=== PATIENT | female | born 1995 | race Two or more races ===

== ENCOUNTER 2016-06-13 19:44 | Emergency (ER) | payer MEDICAID ==
[~2016-06-13] VITALS: Ht 165.1 cm; Wt 59.0 kg
[2016-06-13 20:00] VITALS: BP 118/50
[2016-06-13 20:46] LABS: Urine Bilirubin Negative (Negative); Urine Color Yellow (Yellow); Urine Glucose Normal (Normal); Urine Mucus FEW (None Seen); Urine Nitrite Negative (Negative); Urine RBC 4 /hpf (0 - 4); Urine Squamous Epithelial Cell FEW /hpf (<5); Urine Urobilinogen Normal (Negative); Urine pH 6.5 (5.0-8.0)
[2016-06-13 20:51] LABS: Urine Blood 2+ /uL (Negative); Urine Ketone 2+ (Negative)
[2016-06-13 20:57] LABS: Basophils # (auto) 0 uL; Basophils % (auto) 0.3 % (0.0-2.0); Eosinophils # (auto) 0.2 uL; Eosinophils % (auto) 1.6 % (0.0-7.0); Hematocrit 37.5 % (36.0-46.0); Hemoglobin 12.2 g/dL (12.2-16.2); Lymphocytes % (auto) 18.8 % (10.0-50.0); Mean Corpuscular Hemoglobin 27.2 pg (28.0-32.0); Mean Corpuscular Hgb Conc. 32.6 g/dL (32.0-36.0); Mean Corpuscular Volume 83.5 fL (80.0-100.0); Mean Platelet Volume 8.2 fL (7.4-10.4); Monocytes # (auto) 0.5 uL; Monocytes % (auto) 4.4 % (0.0-12.0); Neutrophils # (auto) 7.9 uL; Neutrophils % (auto) 74.9 % (37.0-80.0); Platelet Count (auto) 297 10^3/uL (140-450); Red Cell Distribution Width 14.5 % (11.6-16.0); White Blood Cell 10.6 10^3/uL (4.4-10.8)
[2016-06-13 21:12] LABS: INR 1.04 (0.9-1.15); Prothrombin Time 10.7 sec (9.37-12.3)
[2016-06-13 21:20] LABS: Albumin 3.7 g/dL (3.4-5.0); BUN/Creatinine Ratio 12.1; Bilirubin, Total 0.4 mg/dL (0.2-1.0); Calcium 8.9 mg/dL (8.5-10.1); Potassium 3.8 mmol/L (3.5-5.1); Total Protein 7.6 g/dL (6.4-8.2)
== END 2016-06-14 01:39 | disposition left against medical advice (07) ==
LOC: ER 19:47
DX: N89.8 Other specified noninflammatory disorders of vagina (principal); Z53.21 Procedure and treatment not carried out due to patient leaving prior to being seen by health care provider
CPT/HCPCS: 36415; 80053; 81001; 84702; 85025; 85610